=== PATIENT | male | born 1955 | race Caucasian/White ===

== ENCOUNTER 2020-12-30 08:48 | Inpatient (IN) | payer OTHER ==
[2020-12-30] VITALS (7 sets, daily range): BP systolic 122–143; BP diastolic 62–70
[~2020-12-30] VITALS: Ht 182.8 cm; Wt 89.8 kg
[2020-12-30 09:34] LABS: BASO % 0.4 % (0.0-1.0); EOS # 0.1 10*3/uL (0.0-0.4); EOS % 1.7 % (1.0-4.0); HEMATOCRIT 38.1 % (42.0-52.0); LYMPH # 1.9 10*3/uL (1.3-4.4); LYMPH % 23.2 % (27.0-41.0); MEAN CORPUSCULAR HGB 30.4 pg (27.0-31.0); MEAN CORPUSCULAR HGB CONC 33.1 g/dl (33.0-37.0); MEAN PLATELET VOLUME 9.3 fl (9.6-12.3); MONO # 0.7 10*3/uL (0.1-1.0); MONO % 8.8 % (3.0-9.0); NEUT # 5.4 10*3/uL (2.3-7.9); NEUT % 65.7 % (47.0-73.0); PLATELET COUNT AUTOMATED 204 10*3/uL (130-400); RED BLOOD COUNT 4.14 10*6/uL (4.50-5.90); RED CELL DISTRI WIDTH 12.8 % (0-14.5); WHITE BLOOD COUNT 8.3 10*3/uL (4.8-10.8)
[2020-12-30 09:51] LABS: ALBUMIN 3.6 gm/dl (3.1-4.5); ALKALINE PHOSPHATASE 68 U/L (45-117); BUN 11 mg/dl (7-24); CHLORIDE 105 mmol/L (98-107); POTASSIUM 3.3 mmol/L (3.5-5.1); SGOT/AST 20 IU/L (3-35); SGPT/ALT 26 U/L (12-78); SODIUM 137 mmol/L (136-145); TOTAL PROTEIN 7.7 gm/dL (6.4-8.2)
[2020-12-30 12:16] LABS: BILIRUBIN Negative (Negative); BLOOD Negative (Negative); CLARITY Clear (Clear); COLOR Yellow (Yellow); GLUCOSE Negative (Negative); KETONE Negative (Negative); LEUKO ESTERASE Negative (Negative); NITRITE Negative (Negative); PH 5.5 (4.5-8.0)
[2020-12-30 12:53] LABS: BACTERIA TRACE; MUCOUS TRACE; WBC 0-2 wbc/hpf (0-5)
[2020-12-30] MEDS ORDERED: ALDACTONE25 M1 PO (13:50)
[2020-12-30] MEDS ORDERED: SERTRALINE HYDR50 MG PO (13:51)
[2020-12-30] MEDS ORDERED: Synthroid,Levo25 MCG PO (13:51)
[2020-12-30] MEDS ORDERED: LIPITOR40 MG PO (13:51)
[2020-12-30] MEDS ORDERED: VITAMIN D325 MC1 PO (13:52)
[2020-12-30] MEDS ORDERED: VITAMIN D325 MCG PO (13:52)
[2020-12-30] MEDS ORDERED: FISH OIL 1,0001 EAC4 PO (13:53)
[2020-12-30] MEDS ORDERED: CERTAVITE SR-A1 EACH PO (14:19)
[2020-12-30] MEDS ORDERED: VITAMIN B121000 MC1 PO (14:20)
[2020-12-31] VITALS: BP 117/69
[2020-12-31 06:39] LABS: ALBUMIN 3.2 gm/dl (3.1-4.5); BUN 13 mg/dl (7-24); CHLORIDE 108 mmol/L (98-107); CHOLESTEROL 117 mg/dL (<200); CREATININE 1.06 mg/dL (0.70-1.30); POTASSIUM 3.7 mmol/L (3.5-5.1); SGOT/AST 22 IU/L (3-35); SGPT/ALT 29 U/L (12-78); SODIUM 137 mmol/L (136-145); TRIGLYCERIDES 114 mg/dl (<150)
[2020-12-31 06:41] LABS: BASO % 0.6 % (0.0-1.0); EOS # 0.3 10*3/uL (0.0-0.4); EOS % 4.1 % (1.0-4.0); HEMATOCRIT 38.7 % (42.0-52.0); LYMPH # 2.1 10*3/uL (1.3-4.4); LYMPH % 32.5 % (27.0-41.0); MEAN CORPUSCULAR HGB 30.5 pg (27.0-31.0); MEAN CORPUSCULAR HGB CONC 32.8 g/dl (33.0-37.0); MEAN PLATELET VOLUME 9.7 fl (9.6-12.3); MONO # 0.5 10*3/uL (0.1-1.0); MONO % 7.4 % (3.0-9.0); NEUT # 3.6 10*3/uL (2.3-7.9); NEUT % 55.1 % (47.0-73.0); PLATELET COUNT AUTOMATED 208 10*3/uL (130-400); RED BLOOD COUNT 4.16 10*6/uL (4.50-5.90); RED CELL DISTRI WIDTH 12.7 % (0-14.5); WHITE BLOOD COUNT 6.6 10*3/uL (4.8-10.8)
[2020-12-31 06:45] LABS: ALKALINE PHOSPHATASE 61 U/L (45-117); FREE T4 0.97 ng/dl (0.76-1.46); LDL CHOLESTEROL 62 mg/dL (9-159); TOTAL PROTEIN 7.4 gm/dL (6.4-8.2)
[2020-12-31 06:54] LABS: ACT PARTIAL THROMBO TIME 30.1 SECONDS (20.0-32.1)
[2020-12-31 07:27] LABS: VITAMIN D, 25-HYDROXY 49.8 ng/mL (30-100)
[2020-12-31 08:00] VITALS: BP 112/68
[2020-12-31 12:00] VITALS: BP 115/59
[2020-12-31 16:00] VITALS: BP 117/68
[2020-12-31 20:00] VITALS: BP 109/59
[2021-01-01] VITALS: BP 111/57
[2021-01-01 05:55] LABS: BUN 11 mg/dl (7-24); CHLORIDE 109 mmol/L (98-107); CREATININE 1.19 mg/dL (0.70-1.30); POTASSIUM 3.6 mmol/L (3.5-5.1); SODIUM 141 mmol/L (136-145)
[2021-01-01 06:26] LABS: BASO # 0.1 10*3/uL (0.0-0.1); BASO % 0.7 % (0.0-1.0); EOS # 0.3 10*3/uL (0.0-0.4); EOS % 3.6 % (1.0-4.0); HEMATOCRIT 36.7 % (42.0-52.0); LYMPH # 2.7 10*3/uL (1.3-4.4); LYMPH % 36.3 % (27.0-41.0); MEAN CELL VOLUME 93.9 fl (80.0-94.0); MEAN CORPUSCULAR HGB 30.7 pg (27.0-31.0); MEAN CORPUSCULAR HGB CONC 32.7 g/dl (33.0-37.0); MEAN PLATELET VOLUME 9.6 fl (9.6-12.3); MONO # 0.5 10*3/uL (0.1-1.0); MONO % 6.7 % (3.0-9.0); NEUT # 3.9 10*3/uL (2.3-7.9); NEUT % 52.4 % (47.0-73.0); PLATELET COUNT AUTOMATED 226 10*3/uL (130-400); RED BLOOD COUNT 3.91 10*6/uL (4.50-5.90); RED CELL DISTRI WIDTH 12.8 % (0-14.5); WHITE BLOOD COUNT 7.4 10*3/uL (4.8-10.8)
[2021-01-01 08:00] VITALS: BP 110/70; BP 128/84
[2021-01-01 12:00] VITALS: BP 113/65
[2021-01-01 16:00] VITALS: BP 126/68; BP 132/74
[2021-01-01 20:00] VITALS: BP 130/73
[2021-01-02] VITALS: BP 121/59
[2021-01-02 06:59] LABS: BUN 8 mg/dl (7-24); CHLORIDE 110 mmol/L (98-107); CREATININE 1.13 mg/dL (0.70-1.30); SODIUM 141 mmol/L (136-145)
[2021-01-02 07:02] LABS: BASO # 0.1 10*3/uL (0.0-0.1); BASO % 0.7 % (0.0-1.0); EOS # 0.3 10*3/uL (0.0-0.4); EOS % 3.6 % (1.0-4.0); LYMPH # 2.8 10*3/uL (1.3-4.4); LYMPH % 37.3 % (27.0-41.0); MEAN CELL VOLUME 94.3 fl (80.0-94.0); MEAN CORPUSCULAR HGB 30.5 pg (27.0-31.0); MEAN CORPUSCULAR HGB CONC 32.4 g/dl (33.0-37.0); MEAN PLATELET VOLUME 9.2 fl (9.6-12.3); MONO # 0.4 10*3/uL (0.1-1.0); MONO % 5.7 % (3.0-9.0); NEUT # 3.9 10*3/uL (2.3-7.9); PLATELET COUNT AUTOMATED 251 10*3/uL (130-400); RED BLOOD COUNT 4.03 10*6/uL (4.50-5.90); RED CELL DISTRI WIDTH 12.7 % (0-14.5); WHITE BLOOD COUNT 7.4 10*3/uL (4.8-10.8)
[2021-01-02 08:00] VITALS: BP 115/58
[2021-01-02 12:00] VITALS: BP 120/63
[2021-01-02 13:10] VITALS: BP 110/68
[2021-01-02 16:00] VITALS: BP 133/62
[2021-01-02 20:00] VITALS: BP 139/61
[2021-01-03] VITALS: BP 128/47
[2021-01-03 06:16] LABS: BUN 9 mg/dl (7-24); CHLORIDE 109 mmol/L (98-107); CREATININE 1.16 mg/dL (0.70-1.30); POTASSIUM 3.8 mmol/L (3.5-5.1); SODIUM 141 mmol/L (136-145)
[2021-01-03 06:27] LABS: BASO % 0.3 % (0.0-1.0); EOS # 0.3 10*3/uL (0.0-0.4); EOS % 3.3 % (1.0-4.0); HEMATOCRIT 36.3 % (42.0-52.0); LYMPH % 33.5 % (27.0-41.0); MEAN CELL VOLUME 93.8 fl (80.0-94.0); MEAN CORPUSCULAR HGB 30.5 pg (27.0-31.0); MEAN CORPUSCULAR HGB CONC 32.5 g/dl (33.0-37.0); MEAN PLATELET VOLUME 9.1 fl (9.6-12.3); MONO # 0.5 10*3/uL (0.1-1.0); MONO % 5.5 % (3.0-9.0); NEUT # 5.1 10*3/uL (2.3-7.9); PLATELET COUNT AUTOMATED 253 10*3/uL (130-400); RED BLOOD COUNT 3.87 10*6/uL (4.50-5.90)
[2021-01-03 09:11] VITALS: BP 143/89
[2021-01-03 12:16] VITALS: BP 142/78
[2021-01-03 16:00] VITALS: BP 147/65
[2021-01-03 20:00] VITALS: BP 146/67
[2021-01-04] VITALS: BP 132/63
[2021-01-04 05:52] LABS: BUN 9 mg/dl (7-24); CHLORIDE 109 mmol/L (98-107); SODIUM 141 mmol/L (136-145)
[2021-01-04 05:56] LABS: BASO # 0.1 10*3/uL (0.0-0.1); BASO % 0.9 % (0.0-1.0); EOS # 0.3 10*3/uL (0.0-0.4); EOS % 3.3 % (1.0-4.0); HEMATOCRIT 37.7 % (42.0-52.0); LYMPH # 2.9 10*3/uL (1.3-4.4); LYMPH % 33.4 % (27.0-41.0); MEAN CELL VOLUME 94.7 fl (80.0-94.0); MEAN CORPUSCULAR HGB 30.4 pg (27.0-31.0); MEAN CORPUSCULAR HGB CONC 32.1 g/dl (33.0-37.0); MONO # 0.6 10*3/uL (0.1-1.0); MONO % 6.7 % (3.0-9.0); NEUT # 4.8 10*3/uL (2.3-7.9); NEUT % 55.2 % (47.0-73.0); PLATELET COUNT AUTOMATED 261 10*3/uL (130-400); RED BLOOD COUNT 3.98 10*6/uL (4.50-5.90); RED CELL DISTRI WIDTH 12.9 % (0-14.5); WHITE BLOOD COUNT 8.7 10*3/uL (4.8-10.8)
[2021-01-04 07:48] VITALS: BP 116/88
[2021-01-04 10:07] LABS: ACID FAST SPEC PROCESSING Tissue Grinding (.)
[2021-01-04 12:05] VITALS: BP 132/70
[2021-01-04] MEDS ORDERED: LEVOFLOXACIN750 M2 PO (13:05)
== END 2021-01-04 15:37 | DRG 364 ==
LOC: ED 08:48 → 5E 10:39 → EDHOLD 10:39 → 5E 13:46
PROVIDERS: Emergency Medicine; Family Medicine; Podiatrist; Student in an Organized Health Care Education/Training Program; ADMIT Emergency Medicine; ATTEND Emergency Medicine
PROC: 0QBQ0ZZ Excision of Right Toe Phalanx, Open Approach (ICD-10-PCS; principal; 2021-01-02)
PROC: 0QBQ0ZX Excision of Right Toe Phalanx, Open Approach, Diagnostic (ICD-10-PCS; 2021-01-02)
DX: L03.115 Cellulitis of right lower limb (principal); L89.894 Pressure ulcer of other site, stage 4; G58.9 Mononeuropathy, unspecified; E87.6 Hypokalemia; E03.9 Hypothyroidism, unspecified; F79 Unspecified intellectual disabilities; Z20.822 Contact with and (suspected) exposure to COVID-19; I10 Essential (primary) hypertension; E66.8 Other obesity; E78.5 Hyperlipidemia, unspecified; R79.82 Elevated C-reactive protein (CRP); R00.1 Bradycardia, unspecified; Z79.899 Other long term (current) drug therapy; Z68.26 Body mass index [BMI] 26.0-26.9, adult

== ENCOUNTER 2021-10-06 17:55 | Emergency (ER) | payer OTHER ==
[~2021-10-06 17:55] MED LIST: ALDACTONE25 M1 PO; CERTAVITE SR-A1 EACH PO; FISH OIL 1,0001 EAC4 PO; LEVOFLOXACIN750 M2 PO; LIPITOR40 MG PO; SERTRALINE HYDR50 MG PO; Synthroid,Levo25 MCG PO; VITAMIN B121000 MC1 PO; VITAMIN D325 MC1 PO; VITAMIN D325 MCG PO
[2021-10-06 18:07] LABS: BASO % 0.4 % (0.0-1.0); EOS # 0.2 10*3/uL (0.0-0.4); EOS % 1.8 % (1.0-4.0); HEMATOCRIT 42.9 % (42.0-52.0); LYMPH # 2.6 10*3/uL (1.3-4.4); LYMPH % 28.1 % (27.0-41.0); MEAN CELL VOLUME 90.5 fl (80.0-94.0); MEAN CORPUSCULAR HGB 30.6 pg (27.0-31.0); MEAN CORPUSCULAR HGB CONC 33.8 g/dl (33.0-37.0); MONO # 0.6 10*3/uL (0.1-1.0); MONO % 6.2 % (3.0-9.0); NEUT # 5.9 10*3/uL (2.3-7.9); NEUT % 63.2 % (47.0-73.0); PLATELET COUNT AUTOMATED 234 10*3/uL (130-400); RED BLOOD COUNT 4.74 10*6/uL (4.50-5.90); RED CELL DISTRI WIDTH 12.6 % (0-14.5); WHITE BLOOD COUNT 9.4 10*3/uL (4.8-10.8)
[2021-10-06 18:34] LABS: ALKALINE PHOSPHATASE 73 U/L (45-117); BUN 20 mg/dl (7-24); CHLORIDE 108 mmol/L (98-107); CREATININE 1.28 mg/dL (0.70-1.30); POTASSIUM 4.1 mmol/L (3.5-5.1); SGOT/AST 23 IU/L (3-35); SGPT/ALT 23 U/L (12-78); SODIUM 140 mmol/L (136-145); TOTAL PROTEIN 8.4 gm/dL (6.4-8.2)
[2021-10-06 18:36] LABS: ACETAMINOPHEN (TYLENOL) < 5.0 ug/ml (10-30); ETHYL ALCOHOL < 3.0 mg/dl (<3)
[2021-10-06 18:48] LABS: BILIRUBIN Negative (Negative); BLOOD Negative (Negative); CLARITY Clear (Clear); COLOR Yellow (Yellow); GLUCOSE Negative (Negative); KETONE Trace (Negative); LEUKO ESTERASE Negative (Negative); NITRITE Negative (Negative); SPECIFIC GRAVITY 1.025 (1.001-1.030)
[2021-10-06 18:58] LABS: URINE AMPHETAMINES < 1000 (1000ng/ml); URINE BARBITURATES < 200 (200ng/ml); URINE BENZODIAZEPINES < 200 (200ng/ml); URINE CANNABINOIDS (THC) < 50 (50ng/ml); URINE COCAINE < 300 (300ng/ml); URINE METHADONE < 300 (300ng/ml); URINE OPIATES < 300 (300ng/ml)
[2021-10-06 19:01] LABS: URINE PHENCYCLIDINE < 25 (25ng/ml)
[2021-10-06 19:03] LABS: BACTERIA TRACE
== END 2021-10-06 21:41 | disposition home or self-care (01) ==
LOC: ED 17:55
PROVIDERS: Student in an Organized Health Care Education/Training Program
DX: F29 Unspecified psychosis not due to a substance or known physiological condition (principal); Z20.822 Contact with and (suspected) exposure to COVID-19; Z79.899 Other long term (current) drug therapy; Z98.890 Other specified postprocedural states